=== PATIENT | male | born 1935 | race Caucasian/White ===

== ENCOUNTER 2023-12-07 11:43 | Emergency (ER) | payer MEDICARE, OTHER, SELFPAY ==
[2023-12-07 11:48] VITALS: BP 118/78
--- NOTE | 2023-12-07 12:41 | ED.GENMED ---
History of Present Illness
General
Chief Complaint: Fall
Source: patient and spouse
Exam Limitations: none
Time Seen by Provider: 12/07/23 12:34
Travel History
Have you had any contact with someone who has COVID-19?: No
Do you have any symptoms of coronavirus? Fever > 100 degrees, chills, cough, shortness of breath, sore throat, loss of taste or smell, muscle aches, or headache?: No
History of Present Illness
History of Present Illness:
See MDM
Past History
Past History
ED Past Medical History: GERD, Hypercholesterolemia, Hypothyroidism and Other
ED Past Surgical History: Tonsilectomy
Social History
Tobacco: Non-smoker
Alcohol: None
Personal:
Living: with family
Employment: Retired
Phy Exam
Physical Exam
Physical Exam:
See MDM
Course
Orders/Labs/Results
Orders:
Orders
12/07/23 11:47
EKG [Electrocardiogram (*1)] Urgent
Reason for Study: Syncope
12/07/23 11:48
EKG- Treatment ONCE
Vital Signs
Initial and Last Documented VS:
Initial Vital Signs
Resp
18
12/07/23 11:46
Last Documented Vital Signs
Temp Pulse Resp BP Pulse Ox
97.8 F 78 18 118/78 95
12/07/23 11:48 12/07/23 11:48 12/07/23 11:46 12/07/23 11:48 12/07/23 11:48
MDM/Problems Addressed
Differential Diagnosis Includes:
HPI and MDM Narrative:
88-year-old male presenting with for evaluation of syncopal event. Patient stood up at the oral surgeons office and he passed out. believes this is related to sitting down for prolonged period of times. She witnessed the syncope and
collapse and states that there is no seizure activity and there is no head trauma. this is not uncommon for him, per . states that the office urged him to get evaluated. Patient is lying in bed comfortably and offers no complaints.
states that this is at his baseline.
Prior records indicate a fall last month. At that time, he had a CT showing evidence of prior stroke. He was placed on dual antiplatelet therapy. He has since finished Plavix. He is not anticoagulated for his permanent A-fib. He had a short
stay assisted facility and states his walking is actually improved.
Patient offers no complaints. EKG appears to be at baseline. I talked to patient and we discussed obtaining blood work. feels comfortable taking him home and this state without blood work. I personally stood the patient up and
ambulated him and states he is ambulating at baseline and feels comfortable taking him home
Physical exam
General: Well appearing and non-toxic
HEENT: protecting airway
Neck: supple
CV: No evidence of cyanosis. Regular rate. Irregular rhythm
Resp: No accessory muscle use
Abd: Non-distended
Extremities: No deformities
Neuro: alert
Psych: Normal affect
Skin: Intact
Problems Addressed including Acute and Chronic Conditions affecting care:
1. Syncope
Acuity: acute
Prognosis: stable
Details: Likely in setting of orthostasis. Symptoms have since resolved. Patient ambulating without difficulty. EKG at baseline
Differential Diagnosis (but not limited to): Dehydration, orthostasis, cardiac arrhythmia
Testing considered: Blood work
Drug therapy (if applicable): OTC meds, please see d/c instruction regarding Rx drugs
Amount and/or Complexity of Data Reviewed
Clinical info obtained from: Patient and
External data reviewed: Recent fall with short stay at rehab
Labs I independently reviewed (but not limited to): N/A
Radiology: N/A
Pulse Ox: not hypoxic
EKG independently reviewed: A-fib, left axis, no STEMI
[employer] Consultant: N/A
Critical Care: N/A
Risk of Complication:
Social Determinants of health: Good social support
Discussed with other providers: N/A
Escalation of Care includes Admit/Obs: After being observed in the Emergency Department, pt stable for discharge.
Occasional wrong word or 'sound a like' substitutions may have occurred due to the inherent limitations of voice recognition software. Read the chart carefully and recognize, using context, where substitutions have occurred.
*Critical Care Note
Total Time (30-74mins, 75-104mins- exclusive of procedures): Not Applicable
ED Attending Note
-
Portions of this chart may have been created with voice recognition software.� Occasional wrong word or��sound alike� substitutions may have occurred due to the inherent limitations of voice recognition software.
Discharge Plan
Departure
Patient Disposition: Home (Routine Discharge)
Date of Disposition: 12/07/23
Time of Disposition: 12:50
Patient with high blood pressure during this ER visit?: No
Discharge Problem:
Syncope
Instructions: Syncope (Fainting) (DC)
Prescriptions:
No Action
levothyroxine 75 MCG tablet
75 mcg PO DAILY
metoprolol succinate 50 MG tablet extended release 24 hr
50 mg PO DAILY Qty: 30 0RF
donepezil 10 mg Tablet
10 mg PO HS
aspirin 81 mg Tablet,Delayed Release (Dr/Ec)
81 mg PO DAILY
omeprazole 20 mg Capsule,Delayed Release(Dr/Ec)
20 mg PO DAILY
sertraline 50 mg Tablet
50 mg PO HS
cholecalciferol (vitamin D3)
2 gummy PO DAILY
atorvastatin 40 mg Tablet
40 mg PO QPM Qty: 0 0RF
clopidogrel 75 mg Tablet
75 mg PO DAILY Qty: 17 0RF
Referrals:
Natanael Lyle MD [Family Provider] -
Activity Restrictions/Additional Instructions:
Please return for any worsening symptoms.
You may return at any time if you have further concerns.
Please follow up with your doctor at the first available appointment, preferably this week.
Thank you for choosing [facility].
Interventions
Interventions:
ED-Musculoskeletal Assessment Last Done: 12/07/23 12:37
ED- Neurological Assessment Last Done: 12/07/23 12:37
ED-Skin Assessment Last Done: 12/07/23 12:37
== END 2023-12-07 13:08 | disposition home or self-care (01) ==
LOC: EMR 11:43
PROVIDERS: EMERGENCY PHYSICIAN Student in an Organized Health Care Education/Training Program; FAMILY PHYSICIAN Internal Medicine Geriatric Medicine
DX: R55 Syncope and collapse (principal); K21.9 Gastro-esophageal reflux disease without esophagitis; E78.00 Pure hypercholesterolemia, unspecified; E03.9 Hypothyroidism, unspecified; Z79.02 Long term (current) use of antithrombotics/antiplatelets; Z86.73 Personal history of transient ischemic attack (TIA), and cerebral infarction without residual deficits
CPT/HCPCS: 99283; 93005